=== PATIENT | female | born 1955 | race Caucasian/White ===

== ENCOUNTER 2021-09-12 13:22 | Emergency (ER) | payer BC, SELFPAY ==
--- NOTE | ~2021-09-12 | NM_ITS ---
EXAMINATION: NM LUNG IMAGE PERFUSION CLINICAL INFORMATION: Dyspnea. Covid positive. Elevated d-dimer COMPARISON: Chest x-ray performed today TECHNIQUE: Following intravenous administration of 3.2 mCi of 90 9M technetium MAA imaging of both lungs were obtained multiple projections. Ventilation study was not performed. FINDINGS: On perfusion imaging there is normal flow seen to all segments of both lungs without any segmental or subsegmental defect. Ventilation study was not performed. NM/NM pul perfusion IMPRESSION: Normal perfusion scan with no defect seen.
--- NOTE | ~2021-09-12 | XR_ITS ---
EXAMINATION: XR CHEST CLINICAL INFORMATION: Dyspnea. Covid positive. COMPARISON: 08/27/2016 TECHNIQUE: Frontal view of the chest was obtained. FINDINGS: The lungs are well expanded. There is no focal consolidation, edema, or effusion. No pneumothorax. The cardiomediastinal silhouette is within normal limits. No acute osseous abnormality. XR/XR chest 1V IMPRESSION: Clear lungs.
[2021-09-12 13:33] VITALS: BP 187/113; PULSE 95; RESP 18; O2SAT 100; BMI 25.3
--- NOTE | 2021-09-12 13:41 | ECG_ITS ---
Test Reason : COVID Blood Pressure : / mmHG Vent. Rate : 101 BPM Atrial Rate : 101 BPM P-R Int : 156 ms QRS Dur : 088 ms QT Int : 376 ms P-R-T Axes : 024 -12 -05 degrees QTc Int : 487 ms Sinus tachycardia Minimal voltage criteria for LVH, may be normal variant ( Leon product ) Borderline ECG When compared with ECG of 28-AUG-2016 10:44, T wave inversion no longer evident in Anterior leads Referred By: Nafisa Villagomez Electronically Signed By:NAEEM FORMAN MD
[2021-09-12 13:42] VITALS: TEMP 37.1
--- NOTE | 2021-09-12 13:45 | ED.URI ---
HPI - URI/Sore Throat General Chief Complaint: General Medical Stated Complaint: COVID +. W SERVICE DOG Time Seen by Provider: 09/12/21 13:41 Source: patient Mode of arrival: EMS Limitations: other (very anxious, poor historian) History of Present Illness HPI Narrative: 66 yo female unvaccinated for COVID, here with DM, HTN, anxiety/depression, PTSD reports COVID exposure and home test positive this Friday 09/08 was doing okay until two days ago developed runny nose, headaches, cough, felt short of breath - anxiety today and her doctor was on a lunch break so she called 911. She has not taken any OTC medications MD elicited complaint: other (body aches, doesn't feel well, chills, headaches, shortness of breath) Pertinent past history: other (diabetes) Onset (ago): day(s) (2) Consistency: constant Severity: moderate Description of mucous: clear and watery Able to tolerate fluids by mouth: Yes Exacerbating factors: other (coughing) Relieving factors: nothing Context: sick contacts (family members with COVID) Associated symptoms: chills, myalgias, headache, rhinorrhea, cough and shortness of breath Treatments prior to arrival: none Related Data Allergies Allergy/AdvReac Type Severity Reaction Status Date / Time codeine [CODEINE] AdvReac Unknown NAUSEA/VOMI Unverified 12/29/19 18:12 TING metformin [METFORMIN] AdvReac Unknown DEHYDRATED, Unverified 12/29/19 18:12 SYSTEM DID NOT TOLERATE ANYMORE Review of Systems Review of Systems: Constitutional : No Fever, pos Chills, pos Fatigue, pos Malaise ENT/Mouth : No sore throat, pos Rhinorrhea Eyes: No Eye Pain, No Swelling, No Redness Cardiovascular : No Chest Pain, pos SOB, Respiratory : pos Cough, No Sputum, No Wheezing Gastrointestinal : No Nausea, No Vomiting, No Diarrhea Genitourinary : No Dysuria, No Urinary Frequency, No Hematuria, Musculoskeletal : No joint pain, No Myalgias, No Joint Swelling Skin : No Skin Lesions, No rash Neuro : pos Weakness, No Numbness, No Dizziness, No Headache Psych : pos Anxiety/Panic, No Depression Heme/Lymph: No Bruising, No Bleeding,No Lymphadenopathy Endocrine : No Polyuria, No Polydipsia All other systems reviewed and are negative PMFSH Past Medical History Attestation statement: The following information was validated with the patient. Medical History Anxiety Diabetes HTN (hypertension) PTSD (post-traumatic stress disorder) Social History Social History (Updated 09/12/21 @ 14:21 by Nafisa Villagomez DO) Patient Tobacco Use Status: Never used Tobacco Advance Directives: No Advance Directives Information Provided: No Physical Exam Vital Signs: Vital Signs: Last Vital Signs Temp 98.0 F 09/12/21 14:20 Pulse 90 09/12/21 14:20 Resp 18 09/12/21 13:33 BP 145/87 H 09/12/21 14:20 Pulse Ox 99 09/12/21 14:20 BMI result Body Mass Index 25.3 Appearance: Alert. Oriented X3. Mild acute distress - anxious, crying, tearful. has service dog with her named Honey Eyes: Pupils equal, round and reactive to light. ENT: Pharynx normal. Neck: Normal inspection. Neck supple. CVS: Normal heart rate and rhythm. Pulses normal. Respiratory: No respiratory distress. Breath sounds normal. Abdomen: Soft and nontender. Skin: Skin warm and dry. Normal skin color. Normal skin turgor. Extremities: No lower extremity edema. R leg amputation Neuro: Oriented X 3. No motor deficit. No sensory deficit. Course Course Course Narrative: no COVID pneumonia labs ddimer mildly elevated but above threshold - VQ scan ordered signed out to Dr. Mohr MDM - URI/Sore Throat MDM Narrative Medical decision making narrative: 66 yo female unvaccinated for COVID, here with DM, HTN, anxiety/depression, PTSD reports COVID exposure and home test positive this Friday 09/08 comes in now with generalized symptoms and dyspnea x 2 days. She is not hypoxic she is very anxious. She has tried no home medications fo rher headache. At this time EKG, CXR for pneumonia, tylenol and ativan for anxiety. Dispo per results and findings. Lab Data Result diagrams: 09/12/21 14:40 09/12/21 14:40 Labs: Lab Results 09/12/21 09/12/21 09/12/21 Range/Units 14:22 14:40 14:40 WBC 7.9 (4.8-10.8) X10*3/uL RBC 5.46 (4.20-5.50) X10*6/uL Hgb 13.0 (12.0-16.0) g/dl Hct 41.2 (37.0-47.0) % MCV 75.5 L (80.0-98.0) fL MCH 23.8 L (27.0-33.0) pg MCHC 31.6 (31.0-35.0) g/dl RDW 13.9 (11.0-16.0) % Plt Count 337 (160-400) X10*3/uL MPV 9.0 L (9.4-12.3) fL Immature Gran % (Auto) 0.4 (0.0-0.4) % Neut % (Auto) 65.3 (45-73) % Lymph % (Auto) 25.5 (20-40) % Lipscomb % (Auto) 6.8 (2-11) % Eos % (Auto) 1.6 (0-4) % Baso % (Auto) 0.4 (0-2) % Lymph # (Auto) 2.0 (1.2-4.9) X10*3/uL Lipscomb # (Auto) 0.5 (0.1-1.2) X10*3/uL Eos # (Auto) 0.1 (0.0-0.4) X10*3/uL Baso # (Auto) 0.0 (0.0-0.2) X10*3/uL Abs Immat Gran (auto) 0.03 (0.00-0.03) X10*3/uL Absolute Neuts (auto) 5.2 (2.0-8.3) x10*3/uL Absolute Nucleated RBC 0.000 (0.0-0.012) X10*3/uL Nucleated RBC % (auto) 0.0 (0.0-0.2) /100WBC D-Dimer High Sensitivty 295 NG/ML Sodium (135-145) mmol/L Potassium (3.3-5.1) mmol/L Chloride (96-108) mmol/L Carbon Dioxide (22-29) mmol/L Anion Gap (12-20) BUN (9-16) mg/dL Creatinine (0.5-1.4) mg/dL Estim Creat Clear Calc Estimated GFR Random Glucose (60-115) mg/dL Calcium (8.4-10.2) mg/dL Magnesium (1.6-2.6) mg/dL Total Bilirubin (0.0-1.0) mg/dL Direct Bilirubin (0.0-0.5) mg/dL AST (5-31) U/L ALT (0-31) U/L Alkaline Phosphatase (39-117) U/L Troponin I High Sens (<3.5-17.0) ng/L Total Protein (6.5-8.0) g/dL Albumin (3.5-5.0) g/dL COVID-19 (ILEANA) Positive A (Negative) COVID-19 Clin Com See Note 09/12/21 09/12/21 Range/Units 14:40 14:40 WBC (4.8-10.8) X10*3/uL RBC (4.20-5.50) X10*6/uL Hgb (12.0-16.0) g/dl Hct (37.0-47.0) % MCV (80.0-98.0) fL MCH (27.0-33.0) pg MCHC (31.0-35.0) g/dl RDW (11.0-16.0) % Plt Count (160-400) X10*3/uL MPV (9.4-12.3) fL Immature Gran % (Auto) (0.0-0.4) % Neut % (Auto) (45-73) % Lymph % (Auto) (20-40) % Lipscomb % (Auto) (2-11) % Eos % (Auto) (0-4) % Baso % (Auto) (0-2) % Lymph # (Auto) (1.2-4.9) X10*3/uL Lipscomb # (Auto) (0.1-1.2) X10*3/uL Eos # (Auto) (0.0-0.4) X10*3/uL Baso # (Auto) (0.0-0.2) X10*3/uL Abs Immat Gran (auto) (0.00-0.03) X10*3/uL Absolute Neuts (auto) (2.0-8.3) x10*3/uL Absolute Nucleated RBC (0.0-0.012) X10*3/uL Nucleated RBC % (auto) (0.0-0.2) /100WBC D-Dimer High Sensitivty NG/ML Sodium 141 (135-145) mmol/L Potassium 4.3 (3.3-5.1) mmol/L Chloride 106 (96-108) mmol/L Carbon Dioxide 24 (22-29) mmol/L Anion Gap 15 (12-20) BUN 18 H (9-16) mg/dL Creatinine 0.76 (0.5-1.4) mg/dL Estim Creat Clear Calc 70.4 Estimated GFR > 60 Random Glucose 126 H (60-115) mg/dL Calcium 10.8 H (8.4-10.2) mg/dL Magnesium 2.0 (1.6-2.6) mg/dL Total Bilirubin 0.4 (0.0-1.0) mg/dL Direct Bilirubin 0.2 (0.0-0.5) mg/dL AST 13 (5-31) U/L ALT 14 (0-31) U/L Alkaline Phosphatase 158 H (39-117) U/L Troponin I High Sens < 3.5 (<3.5-17.0) ng/L Total Protein 8.1 H (6.5-8.0) g/dL Albumin 4.2 (3.5-5.0) g/dL COVID-19 (ILEANA) (Negative) COVID-19 Clin Com ECG Data Attestation: I personally reviewed and interpreted this ECG as follows: ECG interpretation date: 09/12/21 ECG interpretation time: 14:28 Interpretation: Rate: 101 Rhythm: sinus tachycardia Okay: left , LVH Normal P waves. Normal AUREA. Normal QRS complex. ST T wave : inverted III and aVF (old 2016) no JAVIER qTC: normal prior studies: no acute ischemia The study has been interpreted contemporaneously by me. . Discharge Plan Discharge Clinical Impression: COVID-19, Acute dyspnea Patient Disposition: Still a Patient
[2021-09-12 14:20] VITALS: BP 145/87; PULSE 90; TEMP 36.7; O2SAT 99
[2021-09-12 14:36] LABS: COVID-19 Test Positive (Negative)
[2021-09-12 14:47] LABS: MANUAL DIFF FLAG NO
[2021-09-12 14:51] LABS: Basophils Percent Auto 0.4 % (0-2); Eosinophils Absolute Auto 0.1 X10*3/uL (0.0-0.4); Eosinophils Percent Auto 1.6 % (0-4); Hematocrit 41.2 % (37.0-47.0); Imm Gran Abs Auto 0.03 X10*3/uL (0.00-0.03); Imm Gran Pct Auto 0.4 % (0.0-0.4); Lymphocytes Percent Auto 25.5 % (20-40); Mean Corpuscular HGB Conc 31.6 g/dl (31.0-35.0); Mean Corpuscular Hemoglobin 23.8 pg (27.0-33.0); Mean Corpuscular Volume 75.5 fL (80.0-98.0); Monocytes Absolute Auto 0.5 X10*3/uL (0.1-1.2); Monocytes Percent Auto 6.8 % (2-11); Neutrophils Absolute Auto 5.2 x10*3/uL (2.0-8.3); Neutrophils Percent Auto 65.3 % (45-73); Platelet Count 337 X10*3/uL (160-400); Red Blood Count 5.46 X10*6/uL (4.20-5.50); Red Cell Distribution Width 13.9 % (11.0-16.0); White Blood Count 7.9 X10*3/uL (4.8-10.8)
[2021-09-12] MEDS: LORazepam 1 MG TABLET PO (14:51)
[2021-09-12] MEDS: Acetaminophen 325 MG TABLET 650 MG PO (14:51)
[2021-09-12 14:59] LABS: D Dimer High Sensitivity 295 NG/ML
[2021-09-12 15:06] LABS: Alanine Aminotransferase 14 U/L (0-31); Albumin Level 4.2 g/dL (3.5-5.0); Alkaline Phosphatase 158 U/L (39-117); Anion Gap 15 (12-20); Aspartate Amino Transferase 13 U/L (5-31); Bilirubin Direct 0.2 mg/dL (0.0-0.5); Bilirubin Total 0.4 mg/dL (0.0-1.0); Blood Urea Nitrogen 18 mg/dL (9-16); Calcium 10.8 mg/dL (8.4-10.2); Carbon Dioxide 24 mmol/L (22-29); Chloride 106 mmol/L (96-108); Creatinine Clr Calc Pharmacy 70.4; Estimated Glomerular Filt Rate > 60; Glucose Random 126 mg/dL (60-115); Potassium 4.3 mmol/L (3.3-5.1); Sodium 141 mmol/L (135-145); Total Protein 8.1 g/dL (6.5-8.0)
[2021-09-12 15:11] LABS: Troponin-I High Sensitivity < 3.5 ng/L (<3.5-17.0)
--- NOTE | 2021-09-12 15:12 | MHC.CM.ED ---
Received telephone call from Shahnaz at PCP's office. She is patient's restorative care technician. She can be reached via telephone at [phone] if there are any questions or concerns.
[2021-09-12 19:41] VITALS: BP 169/93; PULSE 116; RESP 18; TEMP 36.6; O2SAT 99
[2021-09-12] MEDS: Ibuprofen 600 MG TABLET PO (20:09)
[2021-09-12] MEDS: Morphine Sulfate Immed Release 15 MG TABLET PO (20:09)
[2021-09-12] MEDS: Gabapentin 400 MG CAPSULE PO (20:09)
== END 2021-09-12 20:30 | disposition home or self-care (01) ==
PROVIDERS: Emergency Medicine; Emergency Provider Emergency Medicine; PCP Family Medicine
DX: U07.1 COVID-19 (principal); F41.9 Anxiety disorder, unspecified; I10 Essential (primary) hypertension; E11.9 Type 2 diabetes mellitus without complications
CPT/HCPCS: 36415; 71045; 78580; 80048; 80076; 83735; 84484; 85025; 85379; 87635; 93005; 99284; A9540